=== PATIENT | female | born 1945 | race Hispanic/Latino ===

== ENCOUNTER 2018-09-23 09:00 | Emergency (ER) | payer MEDICARE ==
[2018-09-23] MEDS ORDERED: methylPREDNISolone Sod Succ/PF 125 MG/2 ML VIAL ONE (09:36)
== END 2018-09-23 10:10 | disposition home or self-care (01) ==
LOC: MADERS 09:00
DX: L25.9 Unspecified contact dermatitis, unspecified cause (principal); J45.909 Unspecified asthma, uncomplicated; Z79.899 Other long term (current) drug therapy
CPT/HCPCS: 96372; J2930

== ENCOUNTER 2022-07-13 12:20 | Outpatient (CLI) | payer MEDICARE | END 2022-07-13 12:21 | disposition home or self-care (01) | LOC: MADRAD 12:20 | PROVIDERS: ATTEND Family Medicine | DX: J44.1 Chronic obstructive pulmonary disease with (acute) exacerbation (principal); R30.0 Dysuria; Q79.1 Other congenital malformations of diaphragm | CPT/HCPCS: 71046; 87086 ==

== ENCOUNTER 2023-09-22 14:20 | Emergency (ER) | payer MEDICARE ==
[2023-09-22 15:14] LABS: #Basophils 0.1 thou/uL (0.0-0.2); #Eosinphils 0.5 thou/uL (0.0-0.7); #Lymphocytes 2.3 thou/uL (1.20-3.40); #Monocytes 0.8 thou/uL (0.11-0.59); #Neutrophils 3.2 thou/uL (1.40-6.50); %Basophils 1.3 % (0.0-1.0); %Eosinophils 7.1 % (0.0-10.0); %Monocytes 11.5 % (0.0-10.0); %Neutrophils 47.1 % (42.0-75.0); Hematocrit 45.6 % (36.0-47.0); Mean Corpuscular HGB CONC 30.7 g/dL (32.0-36.0); Mean Corpuscular Hemoglobin 30.2 pg (27.0-31.0); Mean Corpuscular Volume 98.4 fl (78.0-98.0); Mean Platelet Volume 11.1 fL (7.4-10.4); Platelet Count 176 10x3/uL (130-400); RBC Distribution Width 13.9 % (11.5-14.5); Red Blood Cell (RBC) Count 4.63 mill/uL (4.20-5.40); White Blood Cell (WBC) Count 6.8 10x3/uL (4.8-10.8)
[2023-09-22 15:21] LABS: INR-International Normal Ratio 1.1; Prothrombin Time 14.6 sec (12.0-14.7)
[2023-09-22 15:22] LABS: PTT 26.9 sec (22.9-36.1)
[2023-09-22 15:28] LABS: ALT (SGPT) 18 U/L (8-55); AST (SGOT) 23 U/L (5-34); Albumin 4.1 g/dL (3.4-4.8); Alkaline Phosphatase 71 U/L (40-110); Anion Gap 15 mmol/L (10-20); BUN (Urea Nitrogen) 10 mg/dL (9.8-20.1); Bilirubin, Total 0.3 mg/dL (0.2-1.2); Calc. Creatinine Clearance 0 mL/min (70-130); Calcium 9.2 mg/dL (7.8-10.44); Carbon Dioxide 24 mmol/L (23-31); Chloride 104 mmol/L (98-107); Estimated GFR 91; Globulin 3.9 g/dL (2.4-3.5); Glucose 92 mg/dL (83-110); Potassium 4.1 mmol/L (3.5-5.1); Sodium 139 mmol/L (136-145)
[2023-09-22 15:29] LABS: Troponin I Less than 0.010 ng/mL (< 0.028)
== END 2023-09-22 16:19 | disposition home or self-care (01) ==
LOC: MADERS 14:20
DX: E11.42 Type 2 diabetes mellitus with diabetic polyneuropathy (principal); M54.10 Radiculopathy, site unspecified; R20.2 Paresthesia of skin
CPT/HCPCS: 70450; 80053; 84443; 84484; 85025; 85610; 85730; 93005